=== PATIENT | female | born 1950 | race Caucasian/White ===

== ENCOUNTER → 2016-11-06 | Outpatient (CLI) | payer MEDICARE ==
[~2016-11-06] MED LIST: AMITRIPTYLINE10 MG PO; ASPIRIN LOW DOS81 MG PO; BUMEX1 MG PO; CLONIDINE0.1 MG PO; Catapres-Tts 10.1 MG PO; EFFEXOR75 MG PO; Hyzaar 25 MG-101 TAB PO; K-DUR 20MEQ20 MEQ PO; OMEPRAZOLE40 MG PO; TRAMADOL50 MG; VERAPAMIL HCL180 MG PO; XANAX0.5 MG PO
[2016-11-06 13:19] LABS: BASO % 0.3 % (0.0-1.0); EOS # 0.2 10*3/uL (0.0-0.4); EOS % 1.3 % (1.0-4.0); HEMATOCRIT 38.4 % (37.0-47.0); HEMOGLOBIN 12.9 g/dl (12.0-16.0); IG # 0.1 10*3/uL (0.0-0.1); LYMPH # 3.2 10*3/uL (1.3-4.4); LYMPH % 27.5 % (27.0-41.0); MEAN CELL VOLUME 93.2 fl (81.0-99.0); MEAN CORPUSCULAR HGB 31.3 pg (27.0-31.0); MEAN CORPUSCULAR HGB CONC 33.6 g/dl (33.0-37.0); MEAN PLATELET VOLUME 10.9 fl (9.6-12.3); MONO # 0.8 10*3/uL (0.1-1.0); NEUT # 7.4 10*3/uL (2.3-7.9); PLATELET COUNT AUTOMATED 209 10*3/uL (130-400); RED BLOOD COUNT 4.12 10*6/uL (4.10-5.10); RED CELL DISTRI WIDTH 13.7 % (0-14.5); WHITE BLOOD COUNT 11.8 10*3/uL (4.8-10.8)
[2016-11-06 13:49] LABS: C-REACTIVE PROTEIN 2.2 MG/DL (0-0.3)
== END | disposition home or self-care (01) ==
LOC: LAB 12:47
PROVIDERS: Internal Medicine Rheumatology
DX: M05.79 Rheumatoid arthritis with rheumatoid factor of multiple sites without organ or systems involvement (principal)

== ENCOUNTER → 2017-01-16 | Outpatient (CLI) | payer MEDICARE ==
[2017-01-16 11:06] LABS: BASO % 0.4 % (0.0-1.0); EOS # 0.1 10*3/uL (0.0-0.4); EOS % 1.2 % (1.0-4.0); HEMATOCRIT 36.7 % (37.0-47.0); HEMOGLOBIN 12.2 g/dl (12.0-16.0); IG # 0.1 10*3/uL (0.0-0.1); LYMPH # 2.9 10*3/uL (1.3-4.4); LYMPH % 26.1 % (27.0-41.0); MEAN CELL VOLUME 93.4 fl (81.0-99.0); MEAN CORPUSCULAR HGB CONC 33.2 g/dl (33.0-37.0); MEAN PLATELET VOLUME 10.9 fl (9.6-12.3); MONO # 0.9 10*3/uL (0.1-1.0); MONO % 8.1 % (3.0-9.0); PLATELET COUNT AUTOMATED 184 10*3/uL (130-400); RED BLOOD COUNT 3.93 10*6/uL (4.10-5.10); RED CELL DISTRI WIDTH 14.2 % (0-14.5); WHITE BLOOD COUNT 11.1 10*3/uL (4.8-10.8)
[2017-01-16 11:36] LABS: C-REACTIVE PROTEIN 1.33 MG/DL (0-0.3)
== END | disposition home or self-care (01) ==
LOC: LAB 10:42
PROVIDERS: Internal Medicine Rheumatology
DX: M05.79 Rheumatoid arthritis with rheumatoid factor of multiple sites without organ or systems involvement (principal)

== ENCOUNTER → 2017-03-03 | Outpatient (CLI) | payer MEDICARE ==
[2017-03-03 13:23] LABS: BASO % 0.4 % (0.0-1.0); EOS # 0.1 10*3/uL (0.0-0.4); EOS % 1.6 % (1.0-4.0); HEMATOCRIT 37.7 % (37.0-47.0); HEMOGLOBIN 12.7 g/dl (12.0-16.0); IG # 0.1 10*3/uL (0.0-0.1); LYMPH # 2.2 10*3/uL (1.3-4.4); LYMPH % 28.1 % (27.0-41.0); MEAN CELL VOLUME 92.6 fl (81.0-99.0); MEAN CORPUSCULAR HGB 31.2 pg (27.0-31.0); MEAN CORPUSCULAR HGB CONC 33.7 g/dl (33.0-37.0); MONO # 0.4 10*3/uL (0.1-1.0); MONO % 5.2 % (3.0-9.0); NEUT # 5.1 10*3/uL (2.3-7.9); NEUT % 64.1 % (47.0-73.0); PLATELET COUNT AUTOMATED 193 10*3/uL (130-400); RED BLOOD COUNT 4.07 10*6/uL (4.10-5.10); RED CELL DISTRI WIDTH 14.5 % (0-14.5); WHITE BLOOD COUNT 7.9 10*3/uL (4.8-10.8)
[2017-03-03 13:40] LABS: ALBUMIN 3.4 gm/dl (3.1-4.5); BILIRUBIN, TOTAL 0.5 mg/dl (0.2-1.0); C-REACTIVE PROTEIN 1.67 MG/DL (0-0.3); FREE T4 1.07 ng/dl (0.76-1.46); TOTAL PROTEIN 7.5 gm/dL (6.4-8.2)
[2017-03-03 13:45] LABS: THYROID STIM HORMONE (HS) 2.63 uIU/ml (0.358-4.75)
== END | disposition home or self-care (01) ==
LOC: LAB 13:02
PROVIDERS: Internal Medicine Rheumatology
DX: F41.9 Anxiety disorder, unspecified (principal); I10 Essential (primary) hypertension; M51.36 Other intervertebral disc degeneration, lumbar region; M05.79 Rheumatoid arthritis with rheumatoid factor of multiple sites without organ or systems involvement; R73.01 Impaired fasting glucose; E03.9 Hypothyroidism, unspecified; M51.9 Unspecified thoracic, thoracolumbar and lumbosacral intervertebral disc disorder; K21.9 Gastro-esophageal reflux disease without esophagitis

== ENCOUNTER → 2017-04-09 | Outpatient (CLI) | payer MEDICARE ==
[2017-04-09 15:24] LABS: BASO % 0.3 % (0.0-1.0); EOS # 0.2 10*3/uL (0.0-0.4); EOS % 1.8 % (1.0-4.0); HEMOGLOBIN 12.5 g/dl (12.0-16.0); IG # 0.1 10*3/uL (0.0-0.1); LYMPH # 2.1 10*3/uL (1.3-4.4); LYMPH % 19.9 % (27.0-41.0); MEAN CELL VOLUME 94.1 fl (81.0-99.0); MEAN CORPUSCULAR HGB 30.9 pg (27.0-31.0); MEAN CORPUSCULAR HGB CONC 32.9 g/dl (33.0-37.0); MEAN PLATELET VOLUME 11.4 fl (9.6-12.3); MONO # 0.5 10*3/uL (0.1-1.0); MONO % 4.9 % (3.0-9.0); NEUT # 7.5 10*3/uL (2.3-7.9); NEUT % 72.4 % (47.0-73.0); PLATELET COUNT AUTOMATED 190 10*3/uL (130-400); RED BLOOD COUNT 4.04 10*6/uL (4.10-5.10); RED CELL DISTRI WIDTH 13.9 % (0-14.5); WHITE BLOOD COUNT 10.3 10*3/uL (4.8-10.8)
[2017-04-09 15:47] LABS: C-REACTIVE PROTEIN 2.04 MG/DL (0-0.3)
== END ==
LOC: LAB 14:38
PROVIDERS: Internal Medicine Rheumatology
DX: M05.79 Rheumatoid arthritis with rheumatoid factor of multiple sites without organ or systems involvement (principal)

== ENCOUNTER → 2017-06-24 | Outpatient (CLI) | payer MEDICARE ==
[2017-06-24 11:06] LABS: BASO % 0.2 % (0.0-1.0); EOS # 0.1 10*3/uL (0.0-0.4); EOS % 1.3 % (1.0-4.0); HEMOGLOBIN 12.2 g/dl (12.0-16.0); LYMPH # 3.1 10*3/uL (1.3-4.4); LYMPH % 32.3 % (27.0-41.0); MEAN CELL VOLUME 94.1 fl (81.0-99.0); MEAN PLATELET VOLUME 10.6 fl (9.6-12.3); MONO # 0.9 10*3/uL (0.1-1.0); MONO % 8.9 % (3.0-9.0); NEUT # 5.5 10*3/uL (2.3-7.9); NEUT % 56.6 % (47.0-73.0); PLATELET COUNT AUTOMATED 181 10*3/uL (130-400); RED BLOOD COUNT 3.93 10*6/uL (4.10-5.10); RED CELL DISTRI WIDTH 15.3 % (0-14.5); WHITE BLOOD COUNT 9.7 10*3/uL (4.8-10.8)
[2017-06-24 11:33] LABS: ALBUMIN 3.2 gm/dl (3.1-4.5); CREATININE 1.51 mg/dL (0.55-1.02); PHOSPHOROUS 2.7 mg/dL (2.5-4.9); POTASSIUM 3.6 mmol/L (3.5-5.1)
[2017-06-24 12:32] LABS: BILIRUBIN NEGATIVE (NEGATIVE); BLOOD NEGATIVE (NEGATIVE); CLARITY SL CLOUDY (CLEAR); COLOR YELLOW (YELLOW); GLUCOSE NEGATIVE (NEGATIVE); KETONE TRACE (NEGATIVE); LEUKO ESTERASE NEGATIVE (NEGATIVE); NITRITE NEGATIVE (NEGATIVE); PH 5.5 (5.0-9.0); SPECIFIC GRAVITY >= 1.030 (1.005-1.030); UROBILINOGEN 0.2 E.U./dl (0.2-1.0)
[2017-06-24 12:43] LABS: BACTERIA TRACE; RBC 0-2 rbc/hpf (0-2); WBC 0-2 wbc/hpf (0-5)
== END | disposition home or self-care (01) ==
LOC: LAB 10:43
PROVIDERS: Internal Medicine Rheumatology
DX: N18.3 Chronic kidney disease, stage 3 (moderate) (principal); M05.79 Rheumatoid arthritis with rheumatoid factor of multiple sites without organ or systems involvement

== ENCOUNTER → 2017-07-02 | Outpatient (CLI) | payer MEDICARE | END | disposition home or self-care (01) | LOC: LAB 13:54 | DX: R41.3 Other amnesia (principal) ==

== ENCOUNTER 2017-09-02 13:42 | Inpatient (IN) | payer MEDICARE ==
[~2017-09-02] VITALS: Ht 157.5 cm; Wt 111.6 kg
--- NOTE | ~2017-09-02 | CON ---
[place], [place] REPORT OF [facility]ATION [id number] UN[facility] #: [id number] ROOM: 416 DOCTOR: MARIAH CONTRERAS MD BIRTHDATE: [birth year] DOS: 09/03/2017 CHIEF COMPLAINT: Chest pain. HISTORY OF PRESENT ILLNESS: The patient is a 67-year-old woman who states that she has been told in the past that she might have heart problems. She states that she was told that she "almost" had a heart attack several years ago. We do have records of a myocardial perfusion study done on 12/17/2012 which showed normal left ventricular function with an ejection fraction of 75% and no evidence for ischemia. The patient also does have a history of a transient ischemic attack or small stroke in the past. She does have diplopia, which is related to that. She denies any recent chest pain until 2 days ago. She was at rest when she began having right-sided chest pain. Pains resolved, but on 09/02/2017 they recurred when she went to clam picker her dog. The pain was localized under her right breast with minimal radiation. The pain was sharp and lasted several minutes. She stated that pushing on the area helped the pain. Even today she is still somewhat sore in that area. She does admit that she had some shortness of breath, but no diaphoresis with the chest pain. PAST MEDICAL HISTORY: Includes 1. Obesity. 2. Asthma. 3. Possible heart failure. 4. Small stroke with diplopia. 5. Cholecystectomy and history of section times 2. 6. Chronic renal insufficiency. MEDICATIONS: Prior to admission, fluticasone nasal spray daily, alprazolam 0.5 mg p.o. b.i.d., aspirin 81 mg daily, bupropion 150 mg twice a day, donepezil 10 mg daily, duloxetine 30 mg at bedtime, gabapentin 300 mg 3 times a day, losartan with hydrochlorothiazide 100/25 one daily, omeprazole 40 mg daily, prednisone 5 mg daily, spironolactone 25 mg daily and verapamil 180 mg at bedtime. ALLERGIES: The patient lists allergies to IODINE which caused hives and SULFA DRUGS, which made her nauseous and vomit. FAMILY HISTORY: The patient's mother had hypertension and is 91 years of age. Sister had breast cancer and lung cancer. Father had rectal cancer at 94 years of age along with hypertension. REVIEW OF SYSTEMS: The patient denies acute loss of vision, but does have chronic diplopia. She denies syncope. She does have chronic shortness of breath and dyspnea with exertion. She denied chest pain prior to the current events. She denies cough, fevers or chills, but she does have asthma. She denies hemoptysis or hematemesis. She denies change in bowel or bladder habits. Denies blood in her urine or stool. She denies fevers, chills, sweats or recent weight change. She denies any peripheral edema. She denies any skin rashes. Remainder of the review of systems is negative except as noted above. SOCIAL HISTORY: The patient does not smoke or consume alcohol or illegal drugs. [place], [place] REPORT OF CONSULTATION NAME: KHAI GILLESPIE UNIT #: [id number] ROOM: [facility] DOCTOR: MARIAH CONTRERAS MD BIRTHDATE: [birth year] PHYSICAL EXAMINATION: GENERAL: The patient is an overweight white female who is awake, alert and oriented. VITAL SIGNS: Pulse is 66 and regular, blood pressure is 96/62. She is afebrile. She weighed 111.6 kilograms and had a body mass index of 45. HEENT: Normocephalic, atraumatic. Extraocular muscles are intact. Sclerae are clear. Pupils are equal, round and reactive to light. The oral mucosa is moist. Tongue is midline. NECK: Supple. She has no jugular distention. Carotids are full. I heard no bruits. She had no neck or supraclavicular masses and no thyromegaly. Respirations were unlabored. CHEST: Clear to auscultation and percussion. She had no presacral edema or chest wall tenderness. CARDIOVASCULAR: Her heart had a regular rhythm. She had a fourth heart sound, but no third heart sound or significant murmur. The PMI was not displaced. There was no precordial heave, lift or thrill. ABDOMEN: Obese, but otherwise benign. She does have some tenderness in the right upper quadrant on the rib margin area, which does reproduce some of her pain. There is no mass or rebound. EXTREMITIES: Showed no edema. Peripheral pulses are palpable in the feet. LABORATORY DATA: I reviewed the electrocardiogram, which showed sinus rhythm and was a normal tracing. Hemoglobin is 12.8, white count 14,000, platelet count 195,000. Sodium 137, potassium 3.9, BUN 22, creatinine 1.32. Hemoglobin A1c is minimally elevated at 5.7. Troponin has been negative times 3 determinations. Total cholesterol is 75, LDL is 6, HDL is 57. TSH is normal at 2.45. IMPRESSIONS: 1. Atypical chest pain. No evidence for acute myocardial infarction at this time. 2. Hypertension, which is apparently under good control. 3. Asthma. 4. Morbid obesity. 5. Small stroke in the past, possibly due to hypertension. Records not currently available. 6. Diplopia, probably due to previous strokes. PLAN: Thus far, the patient shows no signs of acute coronary event. We will study her further with a pharmacologic myocardial perfusion study and an echocardiogram. Further recommendations will depend upon the results of these examinations. For now continued medical management of her blood pressure is appropriate. If she does indeed have heart failure, verapamil may not be in her best interest and we may need to see about weaning that in the future. I thank the hospitalist physicians for asking our advice regarding her care. [place], [place] REPORT OF CONSULTATION NAME: KHAI GILLESPIE UNIT #: [id number] ROOM: 416 DOCTOR: MARIAH CONTRERAS MD BIRTHDATE: [birth year] MARIAH CONTRERAS MD CM:CONSTR:REPORT OF CONSULTATION 0950 09/03/17 1123 interface
[~2017-09-02 13:42] MED LIST changes: -Hyzaar 25 MG-101 TAB PO; +LOSARTAN-HCTZ1 EAC1 PO
--- NOTE | 2017-09-02 13:47 | NUR ---
PT PRESENTS WITH ATYPICAL CHEST PAIN SIGNS. CHANGING COMPLAINT. CHEST WORK UP AT THIS TIME.
[2017-09-02 13:52] VITALS: BP 145/90
[2017-09-02 14:08] LABS: BASO % 0.3 % (0.0-1.0); EOS # 0.2 10*3/uL (0.0-0.4); EOS % 1.5 % (1.0-4.0); HEMATOCRIT 38.1 % (37.0-47.0); HEMOGLOBIN 12.7 g/dl (12.0-16.0); LYMPH # 2.5 10*3/uL (1.3-4.4); LYMPH % 22.7 % (27.0-41.0); MEAN CELL VOLUME 92.5 fl (81.0-99.0); MEAN CORPUSCULAR HGB 30.8 pg (27.0-31.0); MEAN CORPUSCULAR HGB CONC 33.3 g/dl (33.0-37.0); MONO # 0.8 10*3/uL (0.1-1.0); NEUT # 7.3 10*3/uL (2.3-7.9); NEUT % 67.7 % (47.0-73.0); PLATELET COUNT AUTOMATED 197 10*3/uL (130-400); RED BLOOD COUNT 4.12 10*6/uL (4.10-5.10); RED CELL DISTRI WIDTH 13.5 % (0-14.5); WHITE BLOOD COUNT 10.8 10*3/uL (4.8-10.8)
[2017-09-02 14:18] LABS: INTERNATIONAL NORM RATIO 0.9 (2.0-3.5)
[2017-09-02 14:29] LABS: ALBUMIN 3.3 gm/dl (3.1-4.5); ALKALINE PHOSPHATASE 77 U/L (45-117); BUN 23 mg/dl (7-24); CHLORIDE 103 mmol/L (98-107); CREATININE 1.41 mg/dL (0.55-1.02); SGOT/AST 22 IU/L (3-35); SGPT/ALT 25 U/L (12-78); SODIUM 138 mmol/L (136-145); TOTAL PROTEIN 7.6 gm/dL (6.4-8.2)
[2017-09-02 14:32] LABS: TROPONIN I < 0.015 ng/ml (<0.045)
--- NOTE | 2017-09-02 15:25 | NUR ---
PATIENT CONTINUES TO HAVE PERIODIC PAIN TO EPIGASTRUM/UPPER ABDOMEN/LOWER CHEST.
[2017-09-02 15:26] VITALS: BP 128/48
--- NOTE | 2017-09-02 15:35 | NUR ---
FAMILY MEMBER TO DESK STATING PATIENT IS HAVING PAIN.
--- NOTE | 2017-09-02 16:16 | NUR ---
GI COCKTAIL GIVEN PER PA ANNEY ORDER. PT ASSISTED UP TO BSC TO VOID.PT BEING ADMITTED.--ZEINAB MEDLEY RN
[2017-09-02 16:18] LABS: BILIRUBIN NEGATIVE (NEGATIVE); BLOOD NEGATIVE (NEGATIVE); CLARITY CLEAR (CLEAR); COLOR YELLOW (YELLOW); GLUCOSE NEGATIVE (NEGATIVE); KETONE NEGATIVE (NEGATIVE); LEUKO ESTERASE NEGATIVE (NEGATIVE); NITRITE NEGATIVE (NEGATIVE); SPECIFIC GRAVITY 1.015 (1.005-1.030); UROBILINOGEN 0.2 E.U./dl (0.2-1.0)
[2017-09-02 16:26] LABS: RBC 0-2 rbc/hpf (0-2); WBC 0-2 wbc/hpf (0-5)
[2017-09-02 16:35] VITALS: BP 129/58
--- NOTE | 2017-09-02 16:35 | NUR ---
PT STATES NO CHANGE IN THE WAY IN HER MID EPIGASTRIC AREA FEELS AFTER GI COCKTAIL AT THIS TIME.PT IS NOW BEING ADMITTED AND GOING UPSTAIRS.--ZEINAB MEDLEY RN
--- NOTE | 2017-09-02 16:39 | NUR ---
JUST PRIOR TO TAKING PT UPSTAIRS,SHE STATES NOW SHE NO LONGER HAS ANY PAIN---ZEINAB MEDLEY RN
--- NOTE | 2017-09-02 16:45 | NUR ---
A 67, admitted to , under the services of NILS Correa DO with a diagnosis of UNSTABLE ANGINA. Chief complaint is EPIGASTRIC PAIN INTO RIGHT SHOULDER.. Patient arrived via stretcher from ER. Monitor applied. Initial assessment completed. Vital signs taken and recorded. NILS CORREA DO notified of admission to the unit. Orders received. See assessment for past medical history, medications and allergies. Patient and/or family oriented to unit. [facility] visitation policy reviewed. Clothing/patient valuable form completed. PAIGE CORREA
[2017-09-02] MEDS ORDERED: ARICEPT10 M1 PO (16:49)
[2017-09-02] MEDS ORDERED: ALDACTONE25 MG PO (16:51)
[2017-09-02] MEDS ORDERED: NEURONTIN300 MG PO (17:02)
[2017-09-02] MEDS ORDERED: DULOXETINE HCL30 MG PO (17:04)
[2017-09-02] MEDS ORDERED: PREDNISONE5 MG PO (17:05)
[2017-09-02] MEDS ORDERED: FLONASE ALLERG9.9 ML NAS (17:06)
[2017-09-02] MEDS ORDERED: WELLBUTRIN SR150 MG PO (17:13)
--- NOTE | 2017-09-02 17:15 | NUR ---
MED REC FINISHED AFTER CONFIRMING WITH THE PATIENT/MED CLAIM HISTORY & PHARMACISTS. DR MEEKS CALLED. ALLERGY REACTIONS CONFIRMED.
--- NOTE | 2017-09-02 17:56 | NUR ---
[facility] CARDIOLOGY ANWERING SERVICE NOTIFIED OF CONSULT.
--- NOTE | 2017-09-02 18:05 | NUR ---
DR LLANES RETURN CALL AND NOTIFIED OF CONSULT.
--- NOTE | 2017-09-02 19:50 | NUR ---
PATIENT WALKING FOR BATHROOM, STATES SHE DOES GET SHORT OF BREATH WITH EXERTION. ASKED ABOUT GETTING A REFERAL TO SEE DR. KEMP. PATIENT GIVEN A NASAL CANNULA WITH 2L TO HELP, IF SHE FELT LIKE SHE NEEDED IT. PATIENT AWARE OF NPO STATUS FOR STRESS TEST. PATIENT LEFT WITH CALL LIGHT IN REACH.
[2017-09-02 20:00] VITALS: BP 104/66
--- NOTE | 2017-09-02 22:42 | NUR ---
24 HR chart check completed.
[2017-09-03] VITALS: BP 103/56
[2017-09-03 06:41] LABS: BASO # 0.1 10*3/uL (0.0-0.1); BASO % 0.4 % (0.0-1.0); EOS # 0.2 10*3/uL (0.0-0.4); EOS % 1.4 % (1.0-4.0); HEMATOCRIT 38.5 % (37.0-47.0); HEMOGLOBIN 12.8 g/dl (12.0-16.0); LYMPH # 4.2 10*3/uL (1.3-4.4); LYMPH % 30.2 % (27.0-41.0); MEAN CELL VOLUME 93.7 fl (81.0-99.0); MEAN CORPUSCULAR HGB 31.1 pg (27.0-31.0); MEAN CORPUSCULAR HGB CONC 33.2 g/dl (33.0-37.0); MEAN PLATELET VOLUME 11.9 fl (9.6-12.3); MONO % 7.3 % (3.0-9.0); NEUT # 8.4 10*3/uL (2.3-7.9); NEUT % 59.9 % (47.0-73.0); PLATELET COUNT AUTOMATED 195 10*3/uL (130-400); RED BLOOD COUNT 4.11 10*6/uL (4.10-5.10); RED CELL DISTRI WIDTH 13.5 % (0-14.5)
[2017-09-03 07:04] LABS: CREATININE 1.32 mg/dL (0.55-1.02); POTASSIUM 3.9 mmol/L (3.5-5.1)
[2017-09-03 07:14] LABS: THYROID STIM HORMONE (HS) 2.45 uIU/ml (0.358-4.75)
[2017-09-03 07:43] LABS: VITAMIN D, 25-HYDROXY 37.4 ng/mL (30-100)
[2017-09-03 08:00] VITALS: BP 96/62
--- NOTE | 2017-09-03 08:30 | NUR ---
Legal Instructor in to talk to patient. Patient states lives at HOME with HER SON IS STAYING WITH HER AT THIS TIME. ELAYNE LIVES ALONE. There are 0 steps in the home. Physician: DR MEIR TEE IN [facility] Pharmacy: [facility] services: NONE Patient's level of ADLs: MINIMAL ASSIST Patient has working utilities: YES DME: [facility] Follow-up physician's appointment after d/c: Does patient want to access PORTAL?: WILL BE MADE PRIOR TO DC Discharge plan . MALA CARRASCO
--- NOTE | 2017-09-03 09:28 | NUR ---
patient not available for echo. off the floor for other testing.
--- NOTE | 2017-09-03 09:41 | NUR ---
INFORMED CONSENT SIGNED FOR LEXISCAN STRESS TEST WITH DR. CONTRERAS. RESTING HEART RATE SINUS BRADYCARIA, HR 57, BP 118/70. PULSE OX 96% AND LUNGS CLEAR BILATERALLY. COMPLETED ONE MINUTE OF LEXISCAN PROTOCOL RECEIVING LEXISCAN 0.4MG OVER 10 SECONDS. NO ARRHYTHMIAS OR ST CHANGES NOTED. PT C/O SOB AND BREATHING BEING TIGHT. LAST RECOVERY HR 77, BP 110/60. WAITING NUCLEAR SCANNING IN STABLE CONDITION.
[2017-09-03 12:00] VITALS: BP 128/58
[2017-09-03 16:00] VITALS: BP 126/75
--- NOTE | 2017-09-03 17:50 | NUR ---
Discharge instructions reviewed with patient/family. Patient receptive and verbalizes understanding. Follow-up care arranged. Written instructions given to patient/family. TEOFILO DUONG
== END 2017-09-03 17:50 | disposition home or self-care (01) | DRG 683 ==
LOC: ED 13:42 → 4E 16:20 → EDHOLD 16:20 → 4E 16:28
PROVIDERS: Emergency Medicine; Physician Assistant; Student in an Organized Health Care Education/Training Program; ADMIT Internal Medicine
PROC: 4A02XM4 Measurement of Cardiac Total Activity, External Approach (ICD-10-PCS; principal; 2017-09-03)
PROC: 3E073KZ Introduction of Other Diagnostic Substance into Coronary Artery, Percutaneous Approach (ICD-10-PCS; principal; 2017-09-03)
DX: N17.0 Acute kidney failure with tubular necrosis (principal); Z68.42 Body mass index [BMI] 45.0-49.9, adult; I13.0 Hypertensive heart and chronic kidney disease with heart failure and stage 1 through stage 4 chronic kidney disease, or unspecified chronic kidney disease; E66.01 Morbid (severe) obesity due to excess calories; I50.9 Heart failure, unspecified; G30.0 Alzheimer's disease with early onset; F02.80 Dementia in other diseases classified elsewhere, unspecified severity, without behavioral disturbance, psychotic disturbance, mood disturbance, and anxiety; R07.89 Other chest pain; I25.10 Atherosclerotic heart disease of native coronary artery without angina pectoris; D72.810 Lymphocytopenia; R73.9 Hyperglycemia, unspecified; J45.909 Unspecified asthma, uncomplicated; K21.9 Gastro-esophageal reflux disease without esophagitis; H53.2 Diplopia; N28.89 Other specified disorders of kidney and ureter; N18.3 Chronic kidney disease, stage 3 (moderate); Z90.49 Acquired absence of other specified parts of digestive tract; Z86.73 Personal history of transient ischemic attack (TIA), and cerebral infarction without residual deficits; Z88.2 Allergy status to sulfonamides; Z91.041 Radiographic dye allergy status; Z79.899 Other long term (current) drug therapy; Z79.82 Long term (current) use of aspirin; Z82.49 Family history of ischemic heart disease and other diseases of the circulatory system; Z83.3 Family history of diabetes mellitus; I25.2 Old myocardial infarction; Z80.3 Family history of malignant neoplasm of breast; Z80.1 Family history of malignant neoplasm of trachea, bronchus and lung; Z80.8 Family history of malignant neoplasm of other organs or systems

== ENCOUNTER → 2017-09-04 | Outpatient (CLI) | payer MEDICARE ==
[~2017-09-04] MED LIST changes: +ALDACTONE25 MG PO; +ARICEPT10 M1 PO; +DULOXETINE HCL30 MG PO; +FLONASE ALLERG9.9 ML NAS; +NEURONTIN300 MG PO; +PREDNISONE5 MG PO; +WELLBUTRIN SR150 MG PO
[2017-09-04 11:15] LABS: BASO % 0.3 % (0.0-1.0); EOS # 0.2 10*3/uL (0.0-0.4); EOS % 1.7 % (1.0-4.0); HEMATOCRIT 37.8 % (37.0-47.0); HEMOGLOBIN 12.6 g/dl (12.0-16.0); LYMPH # 3.5 10*3/uL (1.3-4.4); LYMPH % 30.8 % (27.0-41.0); MEAN CELL VOLUME 92.9 fl (81.0-99.0); MEAN CORPUSCULAR HGB CONC 33.3 g/dl (33.0-37.0); MEAN PLATELET VOLUME 11.2 fl (9.6-12.3); MONO # 0.9 10*3/uL (0.1-1.0); MONO % 7.8 % (3.0-9.0); NEUT # 6.7 10*3/uL (2.3-7.9); NEUT % 58.7 % (47.0-73.0); PLATELET COUNT AUTOMATED 185 10*3/uL (130-400); RED BLOOD COUNT 4.07 10*6/uL (4.10-5.10); RED CELL DISTRI WIDTH 13.4 % (0-14.5); WHITE BLOOD COUNT 11.4 10*3/uL (4.8-10.8)
[2017-09-04 11:36] LABS: CREATININE 1.32 mg/dL (0.55-1.02)
== END | disposition home or self-care (01) ==
LOC: LAB 10:49
PROVIDERS: Internal Medicine Rheumatology
DX: M05.79 Rheumatoid arthritis with rheumatoid factor of multiple sites without organ or systems involvement (principal)

== ENCOUNTER → 2017-10-22 | Outpatient (CLI) | payer MEDICARE ==
[2017-10-22 11:07] LABS: BASO # 0.1 10*3/uL (0.0-0.1); BASO % 0.4 % (0.0-1.0); EOS # 0.3 10*3/uL (0.0-0.4); EOS % 2.3 % (1.0-4.0); HEMATOCRIT 39.8 % (37.0-47.0); HEMOGLOBIN 13.2 g/dl (12.0-16.0); LYMPH # 3.9 10*3/uL (1.3-4.4); LYMPH % 31.4 % (27.0-41.0); MEAN CORPUSCULAR HGB 29.9 pg (27.0-31.0); MEAN CORPUSCULAR HGB CONC 33.2 g/dl (33.0-37.0); MEAN PLATELET VOLUME 11.5 fl (9.6-12.3); MONO # 0.8 10*3/uL (0.1-1.0); MONO % 6.6 % (3.0-9.0); NEUT # 7.3 10*3/uL (2.3-7.9); NEUT % 58.7 % (47.0-73.0); PLATELET COUNT AUTOMATED 203 10*3/uL (130-400); RED BLOOD COUNT 4.42 10*6/uL (4.10-5.10); RED CELL DISTRI WIDTH 13.3 % (0-14.5); WHITE BLOOD COUNT 12.4 10*3/uL (4.8-10.8)
[2017-10-22 11:21] LABS: CREATININE 1.6 mg/dL (0.55-1.02)
== END | disposition home or self-care (01) ==
LOC: LAB 10:24
PROVIDERS: Internal Medicine Rheumatology
DX: M05.79 Rheumatoid arthritis with rheumatoid factor of multiple sites without organ or systems involvement (principal)

== ENCOUNTER → 2017-11-10 | Outpatient (CLI) | payer MEDICARE | END | disposition home or self-care (01) | LOC: RESCLI 01:00 | DX: R73.03 Prediabetes (principal); G89.29 Other chronic pain; K59.00 Constipation, unspecified; I10 Essential (primary) hypertension; J32.9 Chronic sinusitis, unspecified; F41.9 Anxiety disorder, unspecified; R41.3 Other amnesia; E55.9 Vitamin D deficiency, unspecified; R55 Syncope and collapse; H53.2 Diplopia ==

== ENCOUNTER 2017-12-23 12:03 | Emergency (ER) | payer MEDICARE ==
[~2017-12-23] VITALS: Ht 157.4 cm; Wt 103.0 kg
[2017-12-23 13:57] LABS: BASO # 0.1 10*3/uL (0.0-0.1); BASO % 0.4 % (0.0-1.0); EOS # 0.1 10*3/uL (0.0-0.4); HEMATOCRIT 38.7 % (37.0-47.0); HEMOGLOBIN 13.2 g/dl (12.0-16.0); LYMPH # 3.1 10*3/uL (1.3-4.4); LYMPH % 27.1 % (27.0-41.0); MEAN CELL VOLUME 88.8 fl (81.0-99.0); MEAN CORPUSCULAR HGB 30.3 pg (27.0-31.0); MEAN CORPUSCULAR HGB CONC 34.1 g/dl (33.0-37.0); MEAN PLATELET VOLUME 11.7 fl (9.6-12.3); MONO # 0.9 10*3/uL (0.1-1.0); MONO % 7.7 % (3.0-9.0); NEUT # 7.1 10*3/uL (2.3-7.9); NEUT % 63.1 % (47.0-73.0); PLATELET COUNT AUTOMATED 158 10*3/uL (130-400); RED BLOOD COUNT 4.36 10*6/uL (4.10-5.10); RED CELL DISTRI WIDTH 13.6 % (0-14.5); WHITE BLOOD COUNT 11.3 10*3/uL (4.8-10.8)
[2017-12-23 14:06] LABS: ACT PARTIAL THROMBO TIME 20.1 SECONDS (20.8-31.5); INTERNATIONAL NORM RATIO 0.9 (2.0-3.5)
[2017-12-23 14:15] LABS: ALBUMIN 3.3 gm/dl (3.1-4.5); CREATININE 1.41 mg/dL (0.55-1.02); POTASSIUM 3.4 mmol/L (3.5-5.1); TOTAL PROTEIN 7.4 gm/dL (6.4-8.2)
== END 2017-12-23 19:25 | disposition short-term general hospital (02) ==
LOC: ED 12:03
PROVIDERS: Emergency Medicine
DX: R25.8 Other abnormal involuntary movements (principal); M62.81 Muscle weakness (generalized); I13.0 Hypertensive heart and chronic kidney disease with heart failure and stage 1 through stage 4 chronic kidney disease, or unspecified chronic kidney disease; N18.3 Chronic kidney disease, stage 3 (moderate); I50.9 Heart failure, unspecified; J45.909 Unspecified asthma, uncomplicated; E66.01 Morbid (severe) obesity due to excess calories; Z86.73 Personal history of transient ischemic attack (TIA), and cerebral infarction without residual deficits; Z90.49 Acquired absence of other specified parts of digestive tract; Z98.890 Other specified postprocedural states; Z79.899 Other long term (current) drug therapy; Z79.82 Long term (current) use of aspirin; Z88.2 Allergy status to sulfonamides

== ENCOUNTER → 2018-01-11 | Outpatient (CLI) | payer MEDICARE ==
[2018-01-11 13:06] LABS: BASO # 0.1 10*3/uL (0.0-0.1); BASO % 0.4 % (0.0-1.0); EOS # 0.1 10*3/uL (0.0-0.4); EOS % 0.5 % (1.0-4.0); HEMATOCRIT 40.2 % (37.0-47.0); HEMOGLOBIN 13.5 g/dl (12.0-16.0); LYMPH # 3.3 10*3/uL (1.3-4.4); LYMPH % 26.1 % (27.0-41.0); MEAN CELL VOLUME 91.6 fl (81.0-99.0); MEAN CORPUSCULAR HGB 30.8 pg (27.0-31.0); MEAN CORPUSCULAR HGB CONC 33.6 g/dl (33.0-37.0); MEAN PLATELET VOLUME 11.3 fl (9.6-12.3); MONO # 1.1 10*3/uL (0.1-1.0); MONO % 8.5 % (3.0-9.0); NEUT # 7.9 10*3/uL (2.3-7.9); NEUT % 63.9 % (47.0-73.0); PLATELET COUNT AUTOMATED 188 10*3/uL (130-400); RED BLOOD COUNT 4.39 10*6/uL (4.10-5.10); RED CELL DISTRI WIDTH 13.7 % (0-14.5); WHITE BLOOD COUNT 12.4 10*3/uL (4.8-10.8)
[2018-01-11 13:29] LABS: ALBUMIN 3.5 gm/dl (3.1-4.5); CREATININE 1.59 mg/dL (0.55-1.02); PHOSPHOROUS 1.7 mg/dL (2.5-4.9); POTASSIUM 3.6 mmol/L (3.5-5.1)
== END | disposition home or self-care (01) ==
LOC: LAB 02:17 → RESCLI 02:17
PROVIDERS: Internal Medicine Nephrology
DX: N18.3 Chronic kidney disease, stage 3 (moderate) (principal)

== ENCOUNTER → 2018-01-16 | Outpatient (CLI) | payer MEDICARE ==
[2018-01-16 10:36] LABS: BILIRUBIN NEGATIVE (NEGATIVE); BLOOD NEGATIVE (NEGATIVE); CLARITY CLEAR (CLEAR); COLOR YELLOW (YELLOW); GLUCOSE NEGATIVE (NEGATIVE); KETONE NEGATIVE (NEGATIVE); LEUKO ESTERASE 2+ (NEGATIVE); NITRITE POSITIVE (NEGATIVE); PH 5.5 (5.0-9.0); UROBILINOGEN 0.2 E.U./dl (0.2-1.0)
[2018-01-16 10:44] LABS: URINE CREATININE RANDOM 79.6 mg/dL
[2018-01-16 10:50] LABS: BACTERIA 3+; WBC 16-20 wbc/hpf (0-5)
== END | disposition home or self-care (01) ==
LOC: LAB 01:30
PROVIDERS: Internal Medicine Nephrology
DX: N18.3 Chronic kidney disease, stage 3 (moderate) (principal)

== ENCOUNTER → 2018-03-02 | Outpatient (CLI) | payer MEDICARE ==
[2018-03-02 13:07] LABS: HEMATOCRIT 39.3 % (37.0-47.0); HEMOGLOBIN 12.8 g/dl (12.0-16.0); MEAN CELL VOLUME 92.9 fl (81.0-99.0); MEAN CORPUSCULAR HGB 30.3 pg (27.0-31.0); MEAN CORPUSCULAR HGB CONC 32.6 g/dl (33.0-37.0); MEAN PLATELET VOLUME 11.4 fl (9.6-12.3); RED BLOOD COUNT 4.23 10*6/uL (4.10-5.10); RED CELL DISTRI WIDTH 12.3 % (0-14.5); WHITE BLOOD COUNT 15.2 10*3/uL (4.8-10.8)
[2018-03-02 13:36] LABS: POTASSIUM 4.3 mmol/L (3.5-5.1)
[2018-03-02 14:05] LABS: ALBUMIN 3.2 gm/dl (3.1-4.5); CREATININE 1.68 mg/dL (0.55-1.02); THYROID STIM HORMONE (HS) 2.37 uIU/ml (0.358-4.75); TOTAL PROTEIN 7.3 gm/dL (6.4-8.2)
== END | disposition home or self-care (01) ==
LOC: LAB 00:44 → RESCLI 00:44
PROVIDERS: Internal Medicine
DX: I10 Essential (primary) hypertension (principal)

== ENCOUNTER → 2018-03-08 | Outpatient (CLI) | payer MEDICARE ==
[2018-03-08 15:03] LABS: CREATININE 1.3 mg/dL (0.55-1.02); POTASSIUM 4.3 mmol/L (3.5-5.1)
== END | disposition home or self-care (01) ==
LOC: LAB 14:35
PROVIDERS: Internal Medicine
DX: R73.03 Prediabetes (principal)

== ENCOUNTER → 2018-04-27 | Outpatient (CLI) | payer MEDICARE | END | disposition home or self-care (01) | LOC: RESCLI 02:35 | DX: I10 Essential (primary) hypertension (principal); J44.9 Chronic obstructive pulmonary disease, unspecified; K21.9 Gastro-esophageal reflux disease without esophagitis; F33.1 Major depressive disorder, recurrent, moderate; E66.01 Morbid (severe) obesity due to excess calories; J30.2 Other seasonal allergic rhinitis; R73.03 Prediabetes; Z68.39 Body mass index [BMI] 39.0-39.9, adult; Z90.49 Acquired absence of other specified parts of digestive tract; Z88.2 Allergy status to sulfonamides ==

== ENCOUNTER → 2018-07-22 | Outpatient (CLI) | payer MEDICARE ==
[2018-07-22 13:29] LABS: BILIRUBIN NEGATIVE (NEGATIVE); BLOOD NEGATIVE (NEGATIVE); CLARITY SL CLOUDY (CLEAR); COLOR YELLOW (YELLOW); GLUCOSE NEGATIVE (NEGATIVE); KETONE NEGATIVE (NEGATIVE); LEUKO ESTERASE NEGATIVE (NEGATIVE); NITRITE NEGATIVE (NEGATIVE); SPECIFIC GRAVITY <= 1.005 (1.005-1.030); UROBILINOGEN 0.2 E.U./dl (0.2-1.0)
[2018-07-22 13:31] LABS: BASO % 0.4 % (0.0-1.0); EOS # 0.1 10*3/uL (0.0-0.4); EOS % 1.2 % (1.0-4.0); HEMATOCRIT 39.6 % (37.0-47.0); LYMPH # 2.8 10*3/uL (1.3-4.4); LYMPH % 25.4 % (27.0-41.0); MEAN CORPUSCULAR HGB 28.9 pg (27.0-31.0); MEAN CORPUSCULAR HGB CONC 32.8 g/dl (33.0-37.0); MEAN PLATELET VOLUME 11.4 fl (9.6-12.3); MONO # 0.6 10*3/uL (0.1-1.0); MONO % 5.4 % (3.0-9.0); NEUT # 7.3 10*3/uL (2.3-7.9); NEUT % 66.7 % (47.0-73.0); PLATELET COUNT AUTOMATED 210 10*3/uL (130-400); RED CELL DISTRI WIDTH 13.1 % (0-14.5); WHITE BLOOD COUNT 10.9 10*3/uL (4.8-10.8)
[2018-07-22 13:37] LABS: BACTERIA 2+; HYALINE CAST 21-30
[2018-07-22 14:08] LABS: ALBUMIN 3.4 gm/dl (3.1-4.5); CREATININE 1.6 mg/dL (0.55-1.02); PHOSPHOROUS 2.6 mg/dL (2.5-4.9)
[2018-07-22 15:00] LABS: PTH INTACT 55.5 pg/mL (18.5-88.0); VITAMIN D, 25-HYDROXY 36.7 ng/mL (30-100)
== END | disposition home or self-care (01) ==
LOC: RESCLI 03:41 → LAB 03:41 → RESCLI 09:07
PROVIDERS: Internal Medicine Nephrology
DX: I13.0 Hypertensive heart and chronic kidney disease with heart failure and stage 1 through stage 4 chronic kidney disease, or unspecified chronic kidney disease (principal); N18.3 Chronic kidney disease, stage 3 (moderate); I50.9 Heart failure, unspecified; K21.9 Gastro-esophageal reflux disease without esophagitis; F41.9 Anxiety disorder, unspecified; J44.9 Chronic obstructive pulmonary disease, unspecified; E66.01 Morbid (severe) obesity due to excess calories; Z79.899 Other long term (current) drug therapy

== ENCOUNTER → 2018-08-03 | Outpatient (CLI) | payer MEDICARE | END | disposition home or self-care (01) | LOC: MAMMO 07-07 10:00 | DX: Z12.31 Encounter for screening mammogram for malignant neoplasm of breast (principal) ==

== ENCOUNTER → 2018-09-29 | Outpatient (CLI) | payer MEDICARE | END | disposition home or self-care (01) | LOC: RESCLI 04:27 | DX: F33.1 Major depressive disorder, recurrent, moderate (principal); G89.29 Other chronic pain; K59.00 Constipation, unspecified; I10 Essential (primary) hypertension; K21.9 Gastro-esophageal reflux disease without esophagitis; F41.9 Anxiety disorder, unspecified; E55.9 Vitamin D deficiency, unspecified; E66.01 Morbid (severe) obesity due to excess calories; R73.03 Prediabetes; J44.9 Chronic obstructive pulmonary disease, unspecified; J30.2 Other seasonal allergic rhinitis; Z68.39 Body mass index [BMI] 39.0-39.9, adult; Z79.82 Long term (current) use of aspirin; Z79.899 Other long term (current) drug therapy; Z88.2 Allergy status to sulfonamides; Z88.8 Allergy status to other drugs, medicaments and biological substances ==

== ENCOUNTER → 2018-12-08 | Outpatient (CLI) | payer MEDICARE ==
[2018-12-08 12:28] LABS: BASO % 0.2 % (0.0-1.0); EOS # 0.2 10*3/uL (0.0-0.4); EOS % 1.4 % (1.0-4.0); HEMATOCRIT 38.7 % (37.0-47.0); HEMOGLOBIN 12.8 g/dl (12.0-16.0); LYMPH # 2.7 10*3/uL (1.3-4.4); LYMPH % 23.2 % (27.0-41.0); MEAN CELL VOLUME 87.8 fl (81.0-99.0); MEAN CORPUSCULAR HGB CONC 33.1 g/dl (33.0-37.0); MONO # 0.7 10*3/uL (0.1-1.0); MONO % 5.7 % (3.0-9.0); NEUT % 68.8 % (47.0-73.0); PLATELET COUNT AUTOMATED 190 10*3/uL (130-400); RED BLOOD COUNT 4.41 10*6/uL (4.10-5.10); RED CELL DISTRI WIDTH 13.4 % (0-14.5); WHITE BLOOD COUNT 11.7 10*3/uL (4.8-10.8)
[2018-12-08 12:49] LABS: CREATININE 1.37 mg/dL (0.55-1.02); POTASSIUM 3.8 mmol/L (3.5-5.1)
== END | disposition home or self-care (01) ==
LOC: RESCLI 00:21
PROVIDERS: Student in an Organized Health Care Education/Training Program
DX: K21.9 Gastro-esophageal reflux disease without esophagitis (principal); F33.1 Major depressive disorder, recurrent, moderate; R73.03 Prediabetes; G89.29 Other chronic pain; K59.00 Constipation, unspecified; F41.9 Anxiety disorder, unspecified; I11.0 Hypertensive heart disease with heart failure; I50.9 Heart failure, unspecified; E55.9 Vitamin D deficiency, unspecified; E66.01 Morbid (severe) obesity due to excess calories; J44.9 Chronic obstructive pulmonary disease, unspecified; Z79.899 Other long term (current) drug therapy; Z90.49 Acquired absence of other specified parts of digestive tract; Z88.2 Allergy status to sulfonamides; Z88.8 Allergy status to other drugs, medicaments and biological substances

== ENCOUNTER → 2018-12-30 | Outpatient (CLI) | payer MEDICARE ==
[2018-12-30 13:39] LABS: BASO % 0.3 % (0.0-1.0); EOS # 0.2 10*3/uL (0.0-0.4); EOS % 1.7 % (1.0-4.0); HEMATOCRIT 38.4 % (37.0-47.0); HEMOGLOBIN 12.7 g/dl (12.0-16.0); LYMPH # 2.8 10*3/uL (1.3-4.4); LYMPH % 26.6 % (27.0-41.0); MEAN CELL VOLUME 88.9 fl (81.0-99.0); MEAN CORPUSCULAR HGB 29.4 pg (27.0-31.0); MEAN CORPUSCULAR HGB CONC 33.1 g/dl (33.0-37.0); MEAN PLATELET VOLUME 11.2 fl (9.6-12.3); MONO # 0.7 10*3/uL (0.1-1.0); MONO % 6.3 % (3.0-9.0); NEUT # 6.8 10*3/uL (2.3-7.9); NEUT % 64.3 % (47.0-73.0); PLATELET COUNT AUTOMATED 186 10*3/uL (130-400); RED BLOOD COUNT 4.32 10*6/uL (4.10-5.10); RED CELL DISTRI WIDTH 13.2 % (0-14.5); WHITE BLOOD COUNT 10.6 10*3/uL (4.8-10.8)
[2018-12-30 14:10] LABS: BILIRUBIN NEGATIVE (NEGATIVE); BLOOD NEGATIVE (NEGATIVE); CLARITY SL CLOUDY (CLEAR); COLOR YELLOW (YELLOW); GLUCOSE NEGATIVE (NEGATIVE); KETONE NEGATIVE (NEGATIVE); NITRITE NEGATIVE (NEGATIVE); SPECIFIC GRAVITY 1.025 (1.005-1.030); UROBILINOGEN 0.2 E.U./dl (0.2-1.0)
[2018-12-30 14:12] LABS: ALBUMIN 3.4 gm/dl (3.1-4.5); CREATININE 1.33 mg/dL (0.55-1.02); CREATININE 1.4 mg/dL (0.55-1.02); PHOSPHOROUS 3.3 mg/dL (2.5-4.9)
[2018-12-30 14:17] LABS: LEUKO ESTERASE NEGATIVE (NEGATIVE)
[2018-12-30 14:21] LABS: PTH INTACT 66.1 pg/mL (18.5-88.0); VITAMIN D, 25-HYDROXY 39.1 ng/mL (30-100)
[2018-12-30 14:26] LABS: BACTERIA 1+; WBC 0-2 wbc/hpf (0-5)
== END | disposition home or self-care (01) ==
LOC: LAB 13:00
PROVIDERS: Internal Medicine Nephrology; Internal Medicine Rheumatology
DX: N18.3 Chronic kidney disease, stage 3 (moderate) (principal); I70.1 Atherosclerosis of renal artery; M05.79 Rheumatoid arthritis with rheumatoid factor of multiple sites without organ or systems involvement

== ENCOUNTER → 2019-03-23 | Outpatient (CLI) | payer MEDICARE | END | disposition home or self-care (01) | LOC: RESCLI 01:14 | DX: J44.9 Chronic obstructive pulmonary disease, unspecified (principal); J30.2 Other seasonal allergic rhinitis; E55.9 Vitamin D deficiency, unspecified; R10.32 Left lower quadrant pain; R73.03 Prediabetes; E66.01 Morbid (severe) obesity due to excess calories; F33.1 Major depressive disorder, recurrent, moderate; G89.29 Other chronic pain; K59.00 Constipation, unspecified; I11.0 Hypertensive heart disease with heart failure; I50.9 Heart failure, unspecified; K21.9 Gastro-esophageal reflux disease without esophagitis; F41.9 Anxiety disorder, unspecified; Z68.39 Body mass index [BMI] 39.0-39.9, adult; Z79.899 Other long term (current) drug therapy ==

== ENCOUNTER → 2019-04-13 | Outpatient (CLI) | payer MEDICARE | END | disposition home or self-care (01) | LOC: US 09:12 | DX: I70.1 Atherosclerosis of renal artery (principal); N95.9 Unspecified menopausal and perimenopausal disorder; I70.0 Atherosclerosis of aorta; R10.32 Left lower quadrant pain ==

== ENCOUNTER → 2019-05-31 | Outpatient (CLI) | payer MEDICARE | END | disposition home or self-care (01) | LOC: RESCLI 00:58 | DX: E55.9 Vitamin D deficiency, unspecified (principal); R10.32 Left lower quadrant pain; R73.03 Prediabetes; E66.01 Morbid (severe) obesity due to excess calories; F33.1 Major depressive disorder, recurrent, moderate; K59.00 Constipation, unspecified; K21.9 Gastro-esophageal reflux disease without esophagitis; F41.9 Anxiety disorder, unspecified; J44.9 Chronic obstructive pulmonary disease, unspecified; I11.0 Hypertensive heart disease with heart failure; I50.9 Heart failure, unspecified; G89.29 Other chronic pain; J30.2 Other seasonal allergic rhinitis; Z68.39 Body mass index [BMI] 39.0-39.9, adult; Z79.899 Other long term (current) drug therapy ==

== ENCOUNTER → 2019-06-30 | Outpatient (CLI) | payer MEDICARE ==
[2019-06-30 11:27] LABS: BASO # 0.1 10*3/uL (0.0-0.1); BASO % 0.5 % (0.0-1.0); BILIRUBIN NEGATIVE (NEGATIVE); BLOOD TRACE-INTACT (NEGATIVE); CLARITY SL CLOUDY (CLEAR); COLOR YELLOW (YELLOW); EOS # 0.2 10*3/uL (0.0-0.4); EOS % 1.9 % (1.0-4.0); GLUCOSE NEGATIVE (NEGATIVE); HEMATOCRIT 39.4 % (37.0-47.0); HEMOGLOBIN 13.2 g/dl (12.0-16.0); KETONE TRACE (NEGATIVE); LEUKO ESTERASE NEGATIVE (NEGATIVE); LYMPH # 2.7 10*3/uL (1.3-4.4); LYMPH % 25.3 % (27.0-41.0); MEAN CELL VOLUME 90.2 fl (81.0-99.0); MEAN CORPUSCULAR HGB 30.2 pg (27.0-31.0); MEAN CORPUSCULAR HGB CONC 33.5 g/dl (33.0-37.0); MEAN PLATELET VOLUME 11.6 fl (9.6-12.3); MONO # 0.7 10*3/uL (0.1-1.0); MONO % 6.5 % (3.0-9.0); NEUT % 65.2 % (47.0-73.0); NITRITE NEGATIVE (NEGATIVE); PLATELET COUNT AUTOMATED 212 10*3/uL (130-400); RED BLOOD COUNT 4.37 10*6/uL (4.10-5.10); RED CELL DISTRI WIDTH 13.3 % (0-14.5); SPECIFIC GRAVITY 1.025 (1.005-1.030); UROBILINOGEN 0.2 E.U./dl (0.2-1.0); WHITE BLOOD COUNT 10.7 10*3/uL (4.8-10.8)
[2019-06-30 11:44] LABS: ALBUMIN 3.5 gm/dl (3.1-4.5); CREATININE 1.39 mg/dL (0.55-1.02); PHOSPHOROUS 3.5 mg/dL (2.5-4.9); POTASSIUM 4.1 mmol/L (3.5-5.1)
[2019-06-30 11:49] LABS: BACTERIA 3+
[2019-06-30 11:50] LABS: EPITHELIAL CELLS 30-40
[2019-06-30 12:41] LABS: PTH INTACT 64.3 pg/mL (18.5-88.0); VITAMIN D, 25-HYDROXY 33.9 ng/mL (30-100)
== END | disposition home or self-care (01) ==
LOC: LAB 10:58
PROVIDERS: Internal Medicine Nephrology
DX: I13.0 Hypertensive heart and chronic kidney disease with heart failure and stage 1 through stage 4 chronic kidney disease, or unspecified chronic kidney disease (principal); I50.9 Heart failure, unspecified; N18.3 Chronic kidney disease, stage 3 (moderate)

== ENCOUNTER → 2019-08-09 | Outpatient (CLI) | payer MEDICARE | END | disposition home or self-care (01) | LOC: RESCLI 01:47 | DX: R10.32 Left lower quadrant pain (principal); R73.03 Prediabetes; F33.1 Major depressive disorder, recurrent, moderate; E66.01 Morbid (severe) obesity due to excess calories; G89.29 Other chronic pain; K59.00 Constipation, unspecified; K21.9 Gastro-esophageal reflux disease without esophagitis; F41.9 Anxiety disorder, unspecified; E55.9 Vitamin D deficiency, unspecified; J44.9 Chronic obstructive pulmonary disease, unspecified; J30.2 Other seasonal allergic rhinitis; I11.0 Hypertensive heart disease with heart failure; I50.9 Heart failure, unspecified; Z79.899 Other long term (current) drug therapy; Z68.39 Body mass index [BMI] 39.0-39.9, adult ==

== ENCOUNTER → 2019-11-23 | Outpatient (CLI) | payer MEDICARE | END | disposition home or self-care (01) | LOC: RESCLI 01:48 | DX: I10 Essential (primary) hypertension (principal); F33.1 Major depressive disorder, recurrent, moderate; E66.01 Morbid (severe) obesity due to excess calories; G89.29 Other chronic pain; K59.00 Constipation, unspecified; K21.9 Gastro-esophageal reflux disease without esophagitis; F41.9 Anxiety disorder, unspecified; E55.9 Vitamin D deficiency, unspecified; J44.9 Chronic obstructive pulmonary disease, unspecified; J30.2 Other seasonal allergic rhinitis; R10.32 Left lower quadrant pain; R73.03 Prediabetes; Z68.39 Body mass index [BMI] 39.0-39.9, adult; Z90.49 Acquired absence of other specified parts of digestive tract; Z79.899 Other long term (current) drug therapy ==

== ENCOUNTER → 2019-12-07 | Outpatient (CLI) | payer MEDICARE ==
[2019-12-07 11:30] LABS: BASO % 0.3 % (0.0-1.0); EOS # 0.1 10*3/uL (0.0-0.4); EOS % 0.9 % (1.0-4.0); HEMATOCRIT 41.5 % (37.0-47.0); HEMOGLOBIN 13.9 g/dl (12.0-16.0); LYMPH # 2.6 10*3/uL (1.3-4.4); LYMPH % 21.2 % (27.0-41.0); MEAN CELL VOLUME 89.2 fl (81.0-99.0); MEAN CORPUSCULAR HGB 29.9 pg (27.0-31.0); MEAN CORPUSCULAR HGB CONC 33.5 g/dl (33.0-37.0); MEAN PLATELET VOLUME 11.2 fl (9.6-12.3); MONO # 0.9 10*3/uL (0.1-1.0); MONO % 6.9 % (3.0-9.0); NEUT # 8.7 10*3/uL (2.3-7.9); NEUT % 70.1 % (47.0-73.0); PLATELET COUNT AUTOMATED 228 10*3/uL (130-400); RED BLOOD COUNT 4.65 10*6/uL (4.10-5.10); RED CELL DISTRI WIDTH 12.8 % (0-14.5); WHITE BLOOD COUNT 12.4 10*3/uL (4.8-10.8)
[2019-12-07 11:33] LABS: BILIRUBIN NEGATIVE (NEGATIVE); BLOOD NEGATIVE (NEGATIVE); CLARITY CLOUDY (CLEAR); COLOR YELLOW (YELLOW); GLUCOSE NEGATIVE (NEGATIVE); KETONE NEGATIVE (NEGATIVE)
[2019-12-07 11:34] LABS: LEUKO ESTERASE NEGATIVE (NEGATIVE); NITRITE NEGATIVE (NEGATIVE); UROBILINOGEN 0.2 E.U./dl (0.2-1.0)
[2019-12-07 11:42] LABS: BACTERIA 2+; EPITHELIAL CELLS TNTC; RBC 0-2 rbc/hpf (0-2)
[2019-12-07 12:02] LABS: ALBUMIN 3.6 gm/dl (3.1-4.5); CREATININE 1.51 mg/dL (0.55-1.02); POTASSIUM 3.9 mmol/L (3.5-5.1); TOTAL PROTEIN 7.6 gm/dL (6.4-8.2)
[2019-12-07 12:12] LABS: VITAMIN D, 25-HYDROXY 53.6 ng/mL (30-100)
== END | disposition home or self-care (01) ==
LOC: LAB 10:50
PROVIDERS: Internal Medicine Nephrology; Student in an Organized Health Care Education/Training Program
DX: I12.9 Hypertensive chronic kidney disease with stage 1 through stage 4 chronic kidney disease, or unspecified chronic kidney disease (principal); N18.3 Chronic kidney disease, stage 3 (moderate); E66.01 Morbid (severe) obesity due to excess calories; E55.9 Vitamin D deficiency, unspecified; R73.03 Prediabetes

== ENCOUNTER → 2019-12-08 | Outpatient (CLI) | payer MEDICARE | END | disposition home or self-care (01) | LOC: MAMMO 00:18 | DX: Z12.31 Encounter for screening mammogram for malignant neoplasm of breast (principal); Z00.00 Encounter for general adult medical examination without abnormal findings; I10 Essential (primary) hypertension; E55.9 Vitamin D deficiency, unspecified; Z78.0 Asymptomatic menopausal state ==

== ENCOUNTER → 2020-08-23 | Outpatient (CLI) | payer MEDICARE ==
[2020-08-23 12:34] LABS: BILIRUBIN Negative (Negative); BLOOD Negative (Negative); CLARITY Cloudy (Clear); COLOR Yellow (Yellow); GLUCOSE Negative (Negative); KETONE Trace (Negative); LEUKO ESTERASE Negative (Negative); NITRITE Negative (Negative); SPECIFIC GRAVITY 1.025 (1.001-1.030)
[2020-08-23 12:39] LABS: BASO % 0.3 % (0.0-1.0); EOS # 0.1 10*3/uL (0.0-0.4); EOS % 1.1 % (1.0-4.0); HEMATOCRIT 41.3 % (37.0-47.0); LYMPH # 3.2 10*3/uL (1.3-4.4); LYMPH % 28.3 % (27.0-41.0); MEAN CELL VOLUME 87.5 fl (81.0-99.0); MEAN CORPUSCULAR HGB 28.4 pg (27.0-31.0); MEAN CORPUSCULAR HGB CONC 32.4 g/dl (33.0-37.0); MEAN PLATELET VOLUME 11.3 fl (9.6-12.3); MONO # 0.7 10*3/uL (0.1-1.0); NEUT # 7.2 10*3/uL (2.3-7.9); NEUT % 63.6 % (47.0-73.0); PLATELET COUNT AUTOMATED 230 10*3/uL (130-400); RED BLOOD COUNT 4.72 10*6/uL (4.10-5.10); RED CELL DISTRI WIDTH 13.2 % (0-14.5); WHITE BLOOD COUNT 11.4 10*3/uL (4.8-10.8)
[2020-08-23 12:46] LABS: BACTERIA 2+; EPITHELIAL CELLS 16-20; MUCOUS 2+
[2020-08-23 12:48] LABS: ALBUMIN 3.5 gm/dl (3.1-4.5); CREATININE 1.43 mg/dL (0.55-1.02); POTASSIUM 4.1 mmol/L (3.5-5.1); TOTAL PROTEIN 8.1 gm/dL (6.4-8.2)
[2020-08-23 13:07] LABS: ALBUMIN 3.5 gm/dl (3.1-4.5); CREATININE 1.41 mg/dL (0.55-1.02); POTASSIUM 3.9 mmol/L (3.5-5.1)
[2020-08-23 13:17] LABS: PTH INTACT 81.2 pg/mL (18.5-88.0); VITAMIN D, 25-HYDROXY 53.2 ng/mL (30-100)
== END | disposition home or self-care (01) ==
LOC: LAB 11:45
PROVIDERS: Internal Medicine; Internal Medicine Nephrology; ATTEND Internal Medicine Nephrology
DX: I12.9 Hypertensive chronic kidney disease with stage 1 through stage 4 chronic kidney disease, or unspecified chronic kidney disease (principal); N18.30 Chronic kidney disease, stage 3 unspecified; E66.01 Morbid (severe) obesity due to excess calories; R73.03 Prediabetes; E83.39 Other disorders of phosphorus metabolism

== ENCOUNTER → 2020-11-07 | Outpatient (CLI) | payer MEDICARE | END | disposition home or self-care (01) | LOC: RESCLI 00:07 | PROVIDERS: ATTEND Internal Medicine | DX: I10 Essential (primary) hypertension (principal); F41.9 Anxiety disorder, unspecified; R41.3 Other amnesia; R53.1 Weakness; B37.9 Candidiasis, unspecified; G89.29 Other chronic pain; E66.01 Morbid (severe) obesity due to excess calories; J44.9 Chronic obstructive pulmonary disease, unspecified; K21.9 Gastro-esophageal reflux disease without esophagitis; K59.00 Constipation, unspecified; R55 Syncope and collapse; F33.1 Major depressive disorder, recurrent, moderate; J32.9 Chronic sinusitis, unspecified; R73.03 Prediabetes; H53.2 Diplopia; J30.2 Other seasonal allergic rhinitis; R25.8 Other abnormal involuntary movements; Z68.39 Body mass index [BMI] 39.0-39.9, adult; Z79.899 Other long term (current) drug therapy; Z01.419 Encounter for gynecological examination (general) (routine) without abnormal findings; Z88.8 Allergy status to other drugs, medicaments and biological substances ==

== ENCOUNTER → 2020-11-14 | Outpatient (CLI) | payer MEDICARE ==
[2020-11-14 12:15] LABS: FREE T4 1.08 ng/dl (0.76-1.46)
[2020-11-14 12:20] LABS: THYROID STIM HORMONE (HS) 3.95 uIU/ml (0.358-4.75)
== END | disposition home or self-care (01) ==
LOC: LAB 11:24
PROVIDERS: Student in an Organized Health Care Education/Training Program; ATTEND Family Medicine
DX: E66.01 Morbid (severe) obesity due to excess calories (principal); I10 Essential (primary) hypertension; Z79.899 Other long term (current) drug therapy

== ENCOUNTER → 2021-05-01 | Outpatient (CLI) | payer MEDICARE ==
[2021-05-01 12:25] LABS: BASO % 0.2 % (0.0-1.0); EOS # 0.1 10*3/uL (0.0-0.4); HEMATOCRIT 40.2 % (37.0-47.0); LYMPH # 2.5 10*3/uL (1.3-4.4); LYMPH % 25.7 % (27.0-41.0); MEAN CELL VOLUME 87.4 fl (81.0-99.0); MEAN CORPUSCULAR HGB 29.3 pg (27.0-31.0); MEAN CORPUSCULAR HGB CONC 33.6 g/dl (33.0-37.0); MONO # 0.6 10*3/uL (0.1-1.0); MONO % 6.6 % (3.0-9.0); NEUT # 6.3 10*3/uL (2.3-7.9); PLATELET COUNT AUTOMATED 213 10*3/uL (130-400); RED CELL DISTRI WIDTH 13.3 % (0-14.5); WHITE BLOOD COUNT 9.6 10*3/uL (4.8-10.8)
[2021-05-01 12:39] LABS: BILIRUBIN Negative (Negative); BLOOD Negative (Negative); CLARITY Clear (Clear); COLOR Yellow (Yellow); GLUCOSE Negative (Negative); KETONE Trace (Negative); LEUKO ESTERASE Negative (Negative); NITRITE Negative (Negative)
[2021-05-01 12:54] LABS: ALBUMIN 3.4 gm/dl (3.1-4.5); CREATININE 1.25 mg/dL (0.55-1.02)
[2021-05-01 12:57] LABS: BACTERIA 2+; WBC 0-2 wbc/hpf (0-5)
[2021-05-01 13:41] LABS: PTH INTACT 90.1 pg/mL (18.5-88.0); VITAMIN D, 25-HYDROXY 74.1 ng/mL (30-100)
== END | disposition home or self-care (01) ==
LOC: LAB 12:07
PROVIDERS: ATTEND Internal Medicine Nephrology
DX: N18.30 Chronic kidney disease, stage 3 unspecified (principal)

== ENCOUNTER 2021-07-11 14:10 | Inpatient (IN) | payer MEDICARE ==
[~2021-07-11] VITALS: Ht 157.5 cm; Wt 105.4 kg
[2021-07-11 14:37] VITALS: BP 144/75
[2021-07-11 14:52] LABS: BASO % 0.3 % (0.0-1.0); EOS # 0.1 10*3/uL (0.0-0.4); EOS % 0.9 % (1.0-4.0); LYMPH # 3.3 10*3/uL (1.3-4.4); LYMPH % 24.4 % (27.0-41.0); MEAN CELL VOLUME 86.7 fl (81.0-99.0); MEAN CORPUSCULAR HGB 29.1 pg (27.0-31.0); MEAN CORPUSCULAR HGB CONC 33.6 g/dl (33.0-37.0); MEAN PLATELET VOLUME 10.8 fl (9.6-12.3); MONO # 0.8 10*3/uL (0.1-1.0); MONO % 6.1 % (3.0-9.0); NEUT # 9.2 10*3/uL (2.3-7.9); NEUT % 67.6 % (47.0-73.0); PLATELET COUNT AUTOMATED 216 10*3/uL (130-400); RED CELL DISTRI WIDTH 13.2 % (0-14.5); WHITE BLOOD COUNT 13.7 10*3/uL (4.8-10.8)
[2021-07-11 15:11] LABS: ALBUMIN 3.4 gm/dl (3.1-4.5); ALKALINE PHOSPHATASE 101 U/L (45-117); BUN 20 mg/dl (7-24); CHLORIDE 104 mmol/L (98-107); CREATININE 1.51 mg/dL (0.55-1.02); SGOT/AST 23 IU/L (3-35); SGPT/ALT 29 U/L (12-78); SODIUM 137 mmol/L (136-145)
[2021-07-11 15:15] VITALS: BP 140/63
[2021-07-11 15:32] LABS: TROPONIN I < 0.015 ng/ml (<0.045)
[2021-07-11 20:25] VITALS: BP 147/65
[2021-07-11] MEDS ORDERED: PRISTIQ100 MG PO (21:49)
[2021-07-11] MEDS ORDERED: VERAPAMIL HCL180 M1 PO (21:50)
[2021-07-11] MEDS ORDERED: PROAIR DIGIHAL90 MCG INH (23:02)
[2021-07-12] VITALS: BP 130/68
[2021-07-12 05:33] LABS: ALBUMIN 2.9 gm/dl (3.1-4.5); CREATININE 1.33 mg/dL (0.55-1.02); POTASSIUM 3.9 mmol/L (3.5-5.1); TOTAL PROTEIN 6.9 gm/dL (6.4-8.2)
[2021-07-12 05:40] LABS: FREE T4 1.1 ng/dl (0.76-1.46); THYROID STIM HORMONE (HS) 2.63 uIU/ml (0.358-4.75)
[2021-07-12 06:19] LABS: BASO % 0.3 % (0.0-1.0); EOS # 0.2 10*3/uL (0.0-0.4); EOS % 1.4 % (1.0-4.0); HEMATOCRIT 37.7 % (37.0-47.0); LYMPH # 3.2 10*3/uL (1.3-4.4); LYMPH % 27.1 % (27.0-41.0); MEAN CELL VOLUME 89.1 fl (81.0-99.0); MEAN CORPUSCULAR HGB 29.3 pg (27.0-31.0); MEAN CORPUSCULAR HGB CONC 32.9 g/dl (33.0-37.0); MEAN PLATELET VOLUME 11.8 fl (9.6-12.3); MONO # 0.9 10*3/uL (0.1-1.0); MONO % 7.9 % (3.0-9.0); NEUT # 7.3 10*3/uL (2.3-7.9); NEUT % 62.6 % (47.0-73.0); PLATELET COUNT AUTOMATED 195 10*3/uL (130-400); RED BLOOD COUNT 4.23 10*6/uL (4.10-5.10); RED CELL DISTRI WIDTH 13.3 % (0-14.5); WHITE BLOOD COUNT 11.7 10*3/uL (4.8-10.8)
[2021-07-12 08:00] VITALS: BP 130/63
== END 2021-07-12 17:32 | disposition home or self-care (01) | DRG 391 ==
LOC: ED 14:10 → EDHOLD 16:06 → 4E 16:06
PROVIDERS: Family Medicine; Internal Medicine; ADMIT Internal Medicine; ATTEND Internal Medicine
PROC: 4A02XM4 Measurement of Cardiac Total Activity, External Approach (ICD-10-PCS; principal; 2021-07-12)
PROC: 3E073KZ Introduction of Other Diagnostic Substance into Coronary Artery, Percutaneous Approach (ICD-10-PCS; 2021-07-12)
DX: K21.9 Gastro-esophageal reflux disease without esophagitis (principal); N17.0 Acute kidney failure with tubular necrosis; Z68.41 Body mass index [BMI] 40.0-44.9, adult; F41.9 Anxiety disorder, unspecified; I12.9 Hypertensive chronic kidney disease with stage 1 through stage 4 chronic kidney disease, or unspecified chronic kidney disease; N18.30 Chronic kidney disease, stage 3 unspecified; D72.829 Elevated white blood cell count, unspecified; E66.01 Morbid (severe) obesity due to excess calories; G47.33 Obstructive sleep apnea (adult) (pediatric); J45.909 Unspecified asthma, uncomplicated; Z90.49 Acquired absence of other specified parts of digestive tract; Z98.891 History of uterine scar from previous surgery; Z82.49 Family history of ischemic heart disease and other diseases of the circulatory system; Z80.1 Family history of malignant neoplasm of trachea, bronchus and lung; Z80.3 Family history of malignant neoplasm of breast; Z91.041 Radiographic dye allergy status; Z88.2 Allergy status to sulfonamides; Z88.8 Allergy status to other drugs, medicaments and biological substances; Z79.51 Long term (current) use of inhaled steroids; Z79.82 Long term (current) use of aspirin; Z79.899 Other long term (current) drug therapy

== ENCOUNTER → 2021-07-25 | Outpatient (CLI) | payer MEDICARE ==
[~2021-07-25] MED LIST changes: +PRISTIQ100 MG PO; +PROAIR DIGIHAL90 MCG INH; +VERAPAMIL HCL180 M1 PO
== END | disposition home or self-care (01) ==
LOC: RESCLI 00:29
PROVIDERS: ATTEND Internal Medicine
DX: J45.909 Unspecified asthma, uncomplicated (principal); K21.9 Gastro-esophageal reflux disease without esophagitis; I11.0 Hypertensive heart disease with heart failure; I50.9 Heart failure, unspecified; Z79.899 Other long term (current) drug therapy; Z79.82 Long term (current) use of aspirin; Z88.8 Allergy status to other drugs, medicaments and biological substances

== ENCOUNTER → 2022-02-14 | Outpatient (CLI) | payer MEDICARE ==
[~2022-02-14] MED LIST changes: +MECLIZINE HCL25 M2 PO; +ZOFRAN4 MG PO
== END | disposition home or self-care (01) ==
LOC: RESCLI 01:13 → LAB 01:13 → RESCLI 07:12
PROVIDERS: ATTEND Internal Medicine
DX: M25.562 Pain in left knee (principal); J45.909 Unspecified asthma, uncomplicated; F41.9 Anxiety disorder, unspecified; E55.9 Vitamin D deficiency, unspecified; K21.9 Gastro-esophageal reflux disease without esophagitis; I11.0 Hypertensive heart disease with heart failure; G89.29 Other chronic pain; E66.01 Morbid (severe) obesity due to excess calories; K57.90 Diverticulosis of intestine, part unspecified, without perforation or abscess without bleeding; Z79.899 Other long term (current) drug therapy; Z94.2 Lung transplant status; Z79.82 Long term (current) use of aspirin

== ENCOUNTER 2022-02-16 18:37 | Emergency (ER) | payer MEDICARE ==
[~2022-02-16] VITALS: Ht 165.1 cm; Wt 136.1 kg
[~2022-02-16 18:37] MED LIST changes: -MECLIZINE HCL25 M2 PO; -ZOFRAN4 MG PO
[2022-02-16 19:30] LABS: CREATININE 1.31 mg/dL (0.55-1.02); POTASSIUM 4.3 mmol/L (3.5-5.1); TOTAL PROTEIN 7.6 gm/dL (6.4-8.2)
[2022-02-16 19:49] LABS: BASO % 0.3 % (0.0-1.0); EOS % 0.3 % (1.0-4.0); HEMATOCRIT 41.6 % (37.0-47.0); LYMPH # 1.4 10*3/uL (1.3-4.4); LYMPH % 11.3 % (27.0-41.0); MEAN CELL VOLUME 86.8 fl (81.0-99.0); MEAN CORPUSCULAR HGB CONC 33.4 g/dl (33.0-37.0); MEAN PLATELET VOLUME 10.9 fl (9.6-12.3); MONO # 0.5 10*3/uL (0.1-1.0); MONO % 4.4 % (3.0-9.0); NEUT # 10.1 10*3/uL (2.3-7.9); NEUT % 82.7 % (47.0-73.0); PLATELET COUNT AUTOMATED 175 10*3/uL (130-400); RED BLOOD COUNT 4.79 10*6/uL (4.10-5.10); RED CELL DISTRI WIDTH 13.2 % (0-14.5); WHITE BLOOD COUNT 12.2 10*3/uL (4.8-10.8)
[2022-02-16 21:35] LABS: BILIRUBIN Negative (Negative); BLOOD Negative (Negative); CLARITY Clear (Clear); COLOR Yellow (Yellow); GLUCOSE Negative (Negative); KETONE 1+ (Negative); LEUKO ESTERASE Negative (Negative); NITRITE Negative (Negative); SPECIFIC GRAVITY >= 1.030 (1.001-1.030)
[2022-02-16 21:53] LABS: BACTERIA 2+
[2022-02-16 21:55] LABS: CALCIUM OXALATE CRYSTALS 1+
[2022-02-16] MEDS ORDERED: ZOFRAN4 MG PO (22:34)
[2022-02-16] MEDS ORDERED: MECLIZINE HCL25 M2 PO (22:34)
== END 2022-02-16 22:45 | disposition home or self-care (01) ==
LOC: ED 18:37
PROVIDERS: Nurse Practitioner Family
DX: R42 Dizziness and giddiness (principal); R11.2 Nausea with vomiting, unspecified; Z88.8 Allergy status to other drugs, medicaments and biological substances; Z79.899 Other long term (current) drug therapy; Z79.82 Long term (current) use of aspirin; Z98.890 Other specified postprocedural states; Z90.49 Acquired absence of other specified parts of digestive tract

== ENCOUNTER → 2022-03-03 | Outpatient (CLI) | payer MEDICARE ==
[~2022-03-03] MED LIST changes: +MECLIZINE HCL25 M2 PO; +ZOFRAN4 MG PO
[2022-03-03 12:30] LABS: BASO # 0.1 10*3/uL (0.0-0.1); BASO % 0.4 % (0.0-1.0); EOS # 0.1 10*3/uL (0.0-0.4); EOS % 1.2 % (1.0-4.0); HEMATOCRIT 42.9 % (37.0-47.0); LYMPH # 2.7 10*3/uL (1.3-4.4); LYMPH % 23.5 % (27.0-41.0); MEAN CORPUSCULAR HGB 28.8 pg (27.0-31.0); MEAN CORPUSCULAR HGB CONC 33.1 g/dl (33.0-37.0); MEAN PLATELET VOLUME 11.1 fl (9.6-12.3); MONO # 0.7 10*3/uL (0.1-1.0); NEUT # 7.9 10*3/uL (2.3-7.9); NEUT % 68.2 % (47.0-73.0); PLATELET COUNT AUTOMATED 219 10*3/uL (130-400); RED BLOOD COUNT 4.93 10*6/uL (4.10-5.10); RED CELL DISTRI WIDTH 13.2 % (0-14.5); WHITE BLOOD COUNT 11.5 10*3/uL (4.8-10.8)
[2022-03-03 12:34] LABS: CREATININE 1.31 mg/dL (0.55-1.02); POTASSIUM 4.2 mmol/L (3.5-5.1)
[2022-03-03 13:09] LABS: VITAMIN D, 25-HYDROXY 54.2 ng/mL (30-100)
[2022-03-03 17:18] LABS: BILIRUBIN Negative (Negative); BLOOD Negative (Negative); CLARITY Clear (Clear); COLOR Yellow (Yellow); GLUCOSE Negative (Negative); KETONE Negative (Negative); LEUKO ESTERASE Negative (Negative); NITRITE Negative (Negative); PH 5.5 (4.5-8.0); UROBILINOGEN 0.2 E.U./dl (0.0-1.0)
[2022-03-03 17:43] LABS: BACTERIA TRACE; EPITHELIAL CELLS 31-40; WBC 0-2 wbc/hpf (0-5)
== END | disposition home or self-care (01) ==
LOC: LAB 11:46
PROVIDERS: Internal Medicine Nephrology; ATTEND Internal Medicine Nephrology
DX: M17.12 Unilateral primary osteoarthritis, left knee (principal); N18.30 Chronic kidney disease, stage 3 unspecified

== ENCOUNTER 2022-05-29 18:12 | Emergency (ER) | payer MEDICARE ==
[~2022-05-29] VITALS: Ht 157.4 cm; Wt 108.9 kg
[2022-05-29 21:06] LABS: BASO % 0.2 % (0.0-1.0); EOS # 0.2 10*3/uL (0.0-0.4); EOS % 1.2 % (1.0-4.0); HEMATOCRIT 42.6 % (37.0-47.0); LYMPH # 3.1 10*3/uL (1.3-4.4); LYMPH % 23.9 % (27.0-41.0); MEAN CELL VOLUME 88.9 fl (81.0-99.0); MEAN CORPUSCULAR HGB 29.2 pg (27.0-31.0); MEAN CORPUSCULAR HGB CONC 32.9 g/dl (33.0-37.0); MEAN PLATELET VOLUME 10.8 fl (9.6-12.3); MONO # 0.9 10*3/uL (0.1-1.0); MONO % 7.2 % (3.0-9.0); NEUT # 8.7 10*3/uL (2.3-7.9); NEUT % 67.2 % (47.0-73.0); PLATELET COUNT AUTOMATED 211 10*3/uL (130-400); RED BLOOD COUNT 4.79 10*6/uL (4.10-5.10); RED CELL DISTRI WIDTH 13.2 % (0-14.5)
[2022-05-29 21:22] LABS: CREATININE 1.4 mg/dL (0.55-1.02); POTASSIUM 4.5 mmol/L (3.5-5.1); TOTAL PROTEIN 7.3 gm/dL (6.4-8.2)
[2022-05-29] MEDS ORDERED: ATIVAN0.5 MG PO (23:20)
== END 2022-05-29 23:34 | disposition home or self-care (01) ==
LOC: ED 18:12
PROVIDERS: Physician Assistant
DX: F41.9 Anxiety disorder, unspecified (principal); Z98.890 Other specified postprocedural states; Z90.49 Acquired absence of other specified parts of digestive tract; Z79.899 Other long term (current) drug therapy; Z79.82 Long term (current) use of aspirin; Z88.8 Allergy status to other drugs, medicaments and biological substances; Z88.2 Allergy status to sulfonamides

== ENCOUNTER 2022-06-16 12:55 | Emergency (ER) | payer MEDICARE ==
[~2022-06-16 12:55] MED LIST changes: +ATIVAN0.5 MG PO
[2022-06-16] MEDS ORDERED: AMOX-CLAV 875-1 EACH PO (14:05)
[2022-06-16] MEDS ORDERED: CETIRIZINE10 MG PO (14:05)
[2022-06-16] MEDS ORDERED: MEDI-MECLIZINE25 MG PO (14:05)
== END 2022-06-16 14:26 | disposition home or self-care (01) ==
LOC: ED 12:55
DX: J32.9 Chronic sinusitis, unspecified (principal); R42 Dizziness and giddiness; H92.03 Otalgia, bilateral; R05.9 Cough, unspecified; Z91.041 Radiographic dye allergy status; Z88.2 Allergy status to sulfonamides; Z88.8 Allergy status to other drugs, medicaments and biological substances; Z79.899 Other long term (current) drug therapy; Z79.82 Long term (current) use of aspirin; Z98.890 Other specified postprocedural states; Z90.49 Acquired absence of other specified parts of digestive tract

== ENCOUNTER → 2022-07-18 | Outpatient (CLI) | payer MEDICARE ==
[~2022-07-18] MED LIST changes: +AMOX-CLAV 875-1 EACH PO; +CETIRIZINE10 MG PO; +MEDI-MECLIZINE25 MG PO
[2022-07-18 14:59] LABS: BILIRUBIN Negative (Negative); BLOOD Negative (Negative); CLARITY Cloudy (Clear); COLOR Dark Yellow (Yellow); GLUCOSE Negative (Negative); KETONE Trace (Negative); LEUKO ESTERASE Negative (Negative); NITRITE Negative (Negative); PH 5.5 (4.5-8.0); SPECIFIC GRAVITY >= 1.030 (1.001-1.030)
[2022-07-18 15:25] LABS: BACTERIA 3+; EPITHELIAL CELLS TNTC; RBC 0-2 rbc/hpf (0-2); WBC 0-2 wbc/hpf (0-5)
== END | disposition home or self-care (01) ==
LOC: RESCLI 13:08
PROVIDERS: Student in an Organized Health Care Education/Training Program; ATTEND Internal Medicine
DX: I11.0 Hypertensive heart disease with heart failure (principal); N39.0 Urinary tract infection, site not specified; I50.9 Heart failure, unspecified; E55.9 Vitamin D deficiency, unspecified; J32.9 Chronic sinusitis, unspecified; K21.9 Gastro-esophageal reflux disease without esophagitis; Z79.899 Other long term (current) drug therapy; Z79.82 Long term (current) use of aspirin; Z90.49 Acquired absence of other specified parts of digestive tract; Z88.8 Allergy status to other drugs, medicaments and biological substances

== ENCOUNTER → 2022-09-11 | Outpatient (CLI) | payer MEDICARE | END | disposition home or self-care (01) | LOC: RESCLI 14:09 | PROVIDERS: ATTEND Student in an Organized Health Care Education/Training Program | DX: I11.0 Hypertensive heart disease with heart failure (principal); I50.9 Heart failure, unspecified; L65.9 Nonscarring hair loss, unspecified; G89.29 Other chronic pain; K21.9 Gastro-esophageal reflux disease without esophagitis; J32.9 Chronic sinusitis, unspecified; J45.909 Unspecified asthma, uncomplicated; F41.9 Anxiety disorder, unspecified; E55.9 Vitamin D deficiency, unspecified; E63.9 Nutritional deficiency, unspecified; K57.90 Diverticulosis of intestine, part unspecified, without perforation or abscess without bleeding; E66.01 Morbid (severe) obesity due to excess calories; G47.00 Insomnia, unspecified; Z90.49 Acquired absence of other specified parts of digestive tract; Z98.890 Other specified postprocedural states; Z82.49 Family history of ischemic heart disease and other diseases of the circulatory system; Z88.2 Allergy status to sulfonamides; Z88.8 Allergy status to other drugs, medicaments and biological substances; Z79.82 Long term (current) use of aspirin; Z79.899 Other long term (current) drug therapy ==

== ENCOUNTER → 2023-03-04 | Outpatient (CLI) | payer MEDICARE ==
[2023-03-04 13:01] LABS: BASO # 0.1 10*3/uL (0.0-0.1); BASO % 0.6 % (0.0-1.0); EOS # 0.1 10*3/uL (0.0-0.4); EOS % 1.1 % (1.0-4.0); HEMATOCRIT 43.4 % (37.0-47.0); LYMPH # 2.4 10*3/uL (1.3-4.4); LYMPH % 22.2 % (27.0-41.0); MEAN CELL VOLUME 88.6 fl (81.0-99.0); MEAN CORPUSCULAR HGB 29.2 pg (27.0-31.0); MEAN CORPUSCULAR HGB CONC 32.9 g/dl (33.0-37.0); MEAN PLATELET VOLUME 11.1 fl (9.6-12.3); MONO # 0.7 10*3/uL (0.1-1.0); MONO % 6.2 % (3.0-9.0); NEUT # 7.5 10*3/uL (2.3-7.9); NEUT % 69.3 % (47.0-73.0); PLATELET COUNT AUTOMATED 229 10*3/uL (130-400); RED CELL DISTRI WIDTH 13.3 % (0-14.5); WHITE BLOOD COUNT 10.8 10*3/uL (4.8-10.8)
[2023-03-04 13:12] LABS: BILIRUBIN 1+ (Negative); BLOOD Negative (Negative); CLARITY Clear (Clear); COLOR Dark Yellow (Yellow); GLUCOSE Negative (Negative); KETONE 1+ (Negative); LEUKO ESTERASE Trace (Negative); NITRITE Negative (Negative); PH 5.5 (4.5-8.0); SPECIFIC GRAVITY 1.025 (1.001-1.030)
[2023-03-04 13:40] LABS: URINE CREATININE RANDOM 362.37 mg/dL
[2023-03-04 13:44] LABS: VITAMIN D, 25-HYDROXY 66.3 ng/mL (30-100)
[2023-03-04 13:55] LABS: EPITHELIAL CELLS 16-20
[2023-03-04 13:56] LABS: BACTERIA 1+; MUCOUS 1+
== END | disposition home or self-care (01) ==
LOC: LAB 12:17
PROVIDERS: ATTEND Internal Medicine Nephrology
DX: N18.30 Chronic kidney disease, stage 3 unspecified (principal)

== ENCOUNTER → 2023-03-18 | Outpatient (CLI) | payer MEDICARE | END | disposition home or self-care (01) | LOC: US 01:19 | PROVIDERS: ATTEND Nurse Practitioner Women's Health | DX: D25.1 Intramural leiomyoma of uterus (principal); N95.0 Postmenopausal bleeding; R93.89 Abnormal findings on diagnostic imaging of other specified body structures ==

== ENCOUNTER → 2023-08-05 | Outpatient (CLI) | payer MEDICARE ==
[~2023-08-05] MED LIST changes: +ASMANEX220 MC4 INH; +CLARITIN10 MG PO
== END | disposition home or self-care (01) ==
LOC: RESCLI 02:24
PROVIDERS: ATTEND Internal Medicine
DX: I10 Essential (primary) hypertension (principal); E53.8 Deficiency of other specified B group vitamins; G89.29 Other chronic pain; J30.2 Other seasonal allergic rhinitis; E55.9 Vitamin D deficiency, unspecified; K21.9 Gastro-esophageal reflux disease without esophagitis; E66.9 Obesity, unspecified; Z88.8 Allergy status to other drugs, medicaments and biological substances; Z90.49 Acquired absence of other specified parts of digestive tract; Z98.890 Other specified postprocedural states; Z79.82 Long term (current) use of aspirin; Z79.899 Other long term (current) drug therapy

== ENCOUNTER → 2023-08-17 | Outpatient (CLI) | payer MEDICARE ==
[2023-08-17 09:22] LABS: BASO # 0.1 10*3/uL (0.0-0.1); BASO % 0.5 % (0.0-1.0); EOS # 0.1 10*3/uL (0.0-0.4); EOS % 0.8 % (1.0-4.0); HEMATOCRIT 41.8 % (37.0-47.0); MEAN CELL VOLUME 89.3 fl (81.0-99.0); MEAN CORPUSCULAR HGB 30.1 pg (27.0-31.0); MEAN CORPUSCULAR HGB CONC 33.7 g/dl (33.0-37.0); MEAN PLATELET VOLUME 11.5 fl (9.6-12.3); MONO # 0.8 10*3/uL (0.1-1.0); MONO % 6.5 % (3.0-9.0); NEUT # 7.5 10*3/uL (2.3-7.9); NEUT % 59.5 % (47.0-73.0); PLATELET COUNT AUTOMATED 230 10*3/uL (130-400); RED BLOOD COUNT 4.68 10*6/uL (4.10-5.10); RED CELL DISTRI WIDTH 13.4 % (0-14.5); WHITE BLOOD COUNT 12.5 10*3/uL (4.8-10.8)
[2023-08-17 10:00] LABS: FREE T4 1.13 ng/dl (0.89-1.76)
== END | disposition home or self-care (01) ==
LOC: LAB 08:30
PROVIDERS: ATTEND Internal Medicine
DX: E66.9 Obesity, unspecified (principal); Z79.899 Other long term (current) drug therapy

== ENCOUNTER → 2023-12-07 | Outpatient (CLI) | payer MEDICARE | LOC: US 01:39 | PROVIDERS: ATTEND Nurse Practitioner Women's Health | DX: D25.1 Intramural leiomyoma of uterus (principal); N85.9 Noninflammatory disorder of uterus, unspecified; R93.89 Abnormal findings on diagnostic imaging of other specified body structures; D25.2 Subserosal leiomyoma of uterus ==

== ENCOUNTER → 2024-01-19 | Outpatient (CLI) | payer MEDICARE | END | disposition home or self-care (01) | LOC: RESCLI 01:10 | PROVIDERS: ATTEND Student in an Organized Health Care Education/Training Program | DX: M06.9 Rheumatoid arthritis, unspecified (principal); I10 Essential (primary) hypertension; J45.909 Unspecified asthma, uncomplicated; E55.9 Vitamin D deficiency, unspecified; K21.9 Gastro-esophageal reflux disease without esophagitis; G47.30 Sleep apnea, unspecified; E53.8 Deficiency of other specified B group vitamins; G89.29 Other chronic pain; Z98.890 Other specified postprocedural states; Z88.2 Allergy status to sulfonamides; Z88.8 Allergy status to other drugs, medicaments and biological substances; Z79.82 Long term (current) use of aspirin; Z79.899 Other long term (current) drug therapy ==

== ENCOUNTER → 2024-02-15 | Outpatient (CLI) | payer MEDICARE | END | disposition home or self-care (01) | LOC: RESCLI 09:07 | PROVIDERS: ATTEND Internal Medicine | DX: J30.2 Other seasonal allergic rhinitis (principal); I11.0 Hypertensive heart disease with heart failure; I50.9 Heart failure, unspecified; K21.9 Gastro-esophageal reflux disease without esophagitis; R42 Dizziness and giddiness; H61.20 Impacted cerumen, unspecified ear; Z79.899 Other long term (current) drug therapy ==

== ENCOUNTER → 2024-08-08 | Outpatient (CLI) | payer MEDICARE ==
[2024-08-08 12:22] LABS: HEMATOCRIT 44.4 % (37.0-47.0); MEAN CELL VOLUME 89.3 fl (81.0-99.0); MEAN CORPUSCULAR HGB CONC 33.6 g/dl (33.0-37.0); MEAN PLATELET VOLUME 10.8 fl (9.6-12.3); RED BLOOD COUNT 4.97 10*6/uL (4.10-5.10); RED CELL DISTRI WIDTH 13.2 % (0-14.5); WHITE BLOOD COUNT 10.7 10*3/uL (4.8-10.8)
[2024-08-08 12:46] LABS: URIC ACID 8.3 mg/dL (3.1-7.8)
== END | disposition home or self-care (01) ==
LOC: LAB 11:50
PROVIDERS: ATTEND Internal Medicine Rheumatology
DX: M51.369 Other intervertebral disc degeneration, lumbar region without mention of lumbar back pain or lower extremity pain (principal); M25.50 Pain in unspecified joint

== ENCOUNTER → 2025-02-06 | Outpatient (CLI) | payer MEDICARE ==
[2025-02-06 10:12] LABS: BASO % 0.3 % (0.0-1.0); EOS # 0.1 10*3/uL (0.0-0.4); EOS % 1.5 % (1.0-4.0); HEMATOCRIT 43.5 % (37.0-47.0); MEAN CELL VOLUME 90.2 fl (81.0-99.0); MEAN CORPUSCULAR HGB 30.3 pg (27.0-31.0); MEAN CORPUSCULAR HGB CONC 33.6 g/dl (33.0-37.0); MONO # 0.7 10*3/uL (0.1-1.0); MONO % 7.9 % (3.0-9.0); NEUT % 63.6 % (47.0-73.0); PLATELET COUNT AUTOMATED 198 10*3/uL (130-400); RED BLOOD COUNT 4.82 10*6/uL (4.10-5.10); RED CELL DISTRI WIDTH 12.8 % (0-14.5); WHITE BLOOD COUNT 9.4 10*3/uL (4.8-10.8)
[2025-02-06 10:16] LABS: BILIRUBIN Negative (Negative); BLOOD Trace-Intact (Negative); CLARITY Cloudy (Clear); COLOR Yellow (Yellow); GLUCOSE Negative (Negative); KETONE Trace (Negative); LEUKO ESTERASE 1+ (Negative); NITRITE Negative (Negative); PH 5.5 (4.5-8.0); SPECIFIC GRAVITY 1.025 (1.001-1.030)
[2025-02-06 10:29] LABS: BACTERIA 1+; EPITHELIAL CELLS 16-20; RBC 0-2 rbc/hpf (0-2)
[2025-02-06 10:40] LABS: URIC ACID 8.5 mg/dL (3.1-7.8)
[2025-02-06 10:41] LABS: POTASSIUM 4.3 mmol/L (3.4-5.1)
[2025-02-06 10:48] LABS: VITAMIN D, 25-HYDROXY 144.8 ng/mL (30-100)
== END | disposition home or self-care (01) ==
LOC: LAB 09:39
PROVIDERS: Internal Medicine Nephrology; ATTEND Internal Medicine Rheumatology
DX: R79.89 Other specified abnormal findings of blood chemistry (principal); E79.0 Hyperuricemia without signs of inflammatory arthritis and tophaceous disease; M25.50 Pain in unspecified joint; N18.30 Chronic kidney disease, stage 3 unspecified

== ENCOUNTER → 2025-05-03 | Outpatient (CLI) | payer MEDICARE ==
[2025-05-03 08:08] LABS: BASO # 0.1 10*3/uL (0.0-0.1); BASO % 0.6 % (0.0-1.0); EOS # 0.1 10*3/uL (0.0-0.4); EOS % 1.0 % (1.0-4.0); MEAN CELL VOLUME 89.8 fl (81.0-99.0); MEAN CORPUSCULAR HGB 30.0 pg (27.0-31.0); MEAN PLATELET VOLUME 10.8 fl (9.6-12.3); MONO # 0.8 10*3/uL (0.1-1.0); MONO % 7.0 % (3.0-9.0); NEUT # 7.3 10*3/uL (2.3-7.9); NEUT % 67.8 % (47.0-73.0); NUCLEATED RED BLOOD CELL 0.0 % (0.0-0.0); NUCLEATED RED BLOOD CELL 0.0 10*3/uL (0.0-0.0); PLATELET COUNT AUTOMATED 216 10*3/uL (130-400); RED CELL DISTRI WIDTH 13.1 % (0-14.5)
[2025-05-03 08:19] LABS: BILIRUBIN Negative (Negative); BLOOD Negative (Negative); CLARITY Cloudy (Clear); COLOR Dark Yellow (Yellow); KETONE Trace (Negative); LEUKO ESTERASE Negative (Negative); NITRITE Negative (Negative); PH 5.5 (4.5-8.0); SPECIFIC GRAVITY 1.025 (1.001-1.030); UROBILINOGEN 1.0 E.U./dl (0.0-1.0)
[2025-05-03 08:36] LABS: EPITHELIAL CELLS TNTC; RBC 0-2 rbc/hpf (0-2)
[2025-05-03 08:50] LABS: BUN 19.0 mg/dl (9-23)
[2025-05-03 08:54] LABS: BUN 19.0 mg/dl (9-23); FREE T4 1.26 ng/dl (0.89-1.76); LDL CHOLESTEROL 28.0 mg/dL (9-159); SGPT/ALT 13.0 U/L (5-49)
[2025-05-03 09:25] LABS: VITAMIN D, 25-HYDROXY 123.5 ng/mL (30-100)
== END | disposition home or self-care (01) ==
LOC: LAB 07:44
PROVIDERS: Family Medicine; ATTEND Nurse Practitioner Family
DX: I12.9 Hypertensive chronic kidney disease with stage 1 through stage 4 chronic kidney disease, or unspecified chronic kidney disease (principal); N18.30 Chronic kidney disease, stage 3 unspecified; M47.817 Spondylosis without myelopathy or radiculopathy, lumbosacral region; M48.061 Spinal stenosis, lumbar region without neurogenic claudication; Z13.220 Encounter for screening for lipoid disorders

== ENCOUNTER → 2025-08-09 | Outpatient (CLI) | payer OTHER ==
[2025-08-09 10:02] LABS: MEAN CELL VOLUME 90.8 fl (81.0-99.0); MEAN CORPUSCULAR HGB 30.1 pg (27.0-31.0); MEAN PLATELET VOLUME 11.0 fl (9.6-12.3); NUCLEATED RED BLOOD CELL 0.0 % (0.0-0.0); NUCLEATED RED BLOOD CELL 0.0 10*3/uL (0.0-0.0); PLATELET COUNT AUTOMATED 208.0 10*3/uL (130-400); RED CELL DISTRI WIDTH 13.2 % (0-14.5)
[2025-08-09 10:47] LABS: SGPT/ALT 14.0 U/L (5-49)
== END | disposition home or self-care (01) ==
LOC: LAB 09:38
PROVIDERS: ATTEND Internal Medicine Rheumatology
DX: M51.369 Other intervertebral disc degeneration, lumbar region without mention of lumbar back pain or lower extremity pain (principal); E79.0 Hyperuricemia without signs of inflammatory arthritis and tophaceous disease

== ENCOUNTER → 2025-09-07 | Outpatient (CLI) | payer MEDICARE | END | disposition home or self-care (01) | LOC: MAMMO 02:13 | PROVIDERS: ATTEND Family Medicine | DX: Z12.31 Encounter for screening mammogram for malignant neoplasm of breast (principal) ==